=== PATIENT | female | born 1990 | race Caucasian/White ===

== ENCOUNTER → 2016-09-10 | Outpatient (CLI) | payer BC ==
[2016-09-10 13:17] LABS: Basophils # (A) 0.1 k/uL (0-0.2); Basophils % (A) 1 %; CH 32.5; CHCM 32.7; Eosinophils # (A) 0.1 k/uL (0-0.7); Eosinophils % (A) 1 %; HCT 45.5 % (34.0-46.0); HDW 2.57; HGB 14.7 gm/dL (11.4-16.0); Luc # (Auto) 0.19; Luc % (Auto) 2; Lymphocytes # (A) 2.4 k/uL (1.0-4.8); Lymphocytes % (A) 29 %; MCH 32.3 pg (25.0-35.0); MCHC 32.4 g/dL (31.0-37.0); MCV 99.9 fL (80.0-100.0); Mean Platelet Volume 8.5; Monocytes # (A) 0.5 k/uL (0-1.0); Monocytes % (A) 6 %; Neutrophils % (A) 61 %; RBC 4.56 m/uL (3.80-5.40); RDW 13.3 % (11.5-15.5); WBC 8.2 k/uL (3.8-10.6); WBC (Perox) 7.81
== END | disposition home or self-care (01) ==
LOC: LABWHC1 12:48
PROVIDERS: ATTEND Otolaryngology
DX: I88.9 Nonspecific lymphadenitis, unspecified (principal); R59.0 Localized enlarged lymph nodes
CPT/HCPCS: 36415; 83615; 85025; 86308; 87471

== ENCOUNTER → 2016-09-10 | Outpatient (CLI) | payer BC ==
--- NOTE | 2016-09-10 12:52 | XR ---
EXAMINATION TYPE: XR chest 2V DATE OF EXAM: 09/10/2016 12:47 PM COMPARISON: NONE TECHNIQUE: PA and lateral views submitted. HISTORY: Cough FINDINGS: The lungs are clear and there is no pneumothorax, pleural effusion, or focal pneumonia. Mild hypertr ophic change of the vertebral column. IMPRESSION: 1. No acute process.
== END | disposition home or self-care (01) ==
LOC: RADXRMAIN 12:33 → PTPH 12:33
PROVIDERS: ATTEND Otolaryngology
DX: R05 Cough (principal)
CPT/HCPCS: 71020

== ENCOUNTER → 2016-10-31 | Outpatient (CLI) | payer BC ==
--- NOTE | 2016-10-31 15:27 | US ---
EXAMINATION TYPE: US thyroid st tissue head/neck DATE OF EXAM: 10/31/2016 3:07 PM COMPARISON: NONE CLINICAL HISTORY: R22.1 Swelling/Mass in Neck, Rt Cervical Node. Palpable area felt posterior to pippa ible Multiple lymph nodes seen at palpable area, largest = 1.5cm and has normal fatty hilum IMPRESSION: NORMAL SOFT TISSUE ULTRASOUND OF THE NECK.
== END | disposition home or self-care (01) ==
LOC: RADUSWWP 14:35
PROVIDERS: ATTEND Otolaryngology
DX: R22.1 Localized swelling, mass and lump, neck (principal)
CPT/HCPCS: 76536

== ENCOUNTER 2020-01-30 10:28 | Emergency (ER) | payer BC, OTHER ==
[2020-01-30] MEDS ORDERED: KETOROLAC 30 MG/ML 1 ML VIAL IVP STA (10:47)
[2020-01-30] MEDS ORDERED: SODIUM CHLORIDE 0.9% 500 ML 500 ML IV STA (10:47)
--- NOTE | 2020-01-30 10:49 | ED ---
Chest Pain HPI - General Chief Complaint: Chest Pain Stated Complaint: Chest pain Time Seen by Provider: 01/30/20 10:34 Source: patient, RN notes reviewed Mode of arrival: ambulatory Limitations: no limitations - History of Present Illness Initial Comments: This is a 29-year-old female presents emergency Department with chief complaint of chest pain, shortness breath. Patient states his started yesterday symptoms have not improved. She does admit that symptoms do improve at rest she has some increased symptoms when she standing up or she takes a deep inspiration she has mild increase in pain. She does not feel short of breath currently. She denies any exertional symptoms. Patient denies any fever, chills, URI symptoms no prior cardiac disease. She denies any significant family history of chronic disease, hypertension hyperlipidemia and diabetes. She doesn't that she is a daily smoker. Denies any current nausea vomiting diarrhea constipation no chance . Patient does take Vyvanse and Charleen-D. - Related Data Home Medications Medication Instructions Recorded Confirmed Fexofenadine/Pseudoephedrine 1 tab PO DAILY 01/30/20 01/30/20 [Charleen-D 24 Hour Tablet] Ibuprofen [Motrin Ib] 800 mg PO Q8H PRN 01/30/20 01/30/20 Lisdexamfetamine Dimesylate 40 mg PO QAM 01/30/20 01/30/20 [Vyvanse] Medroxyprogesterone Acetate 150 mg IM Q90D 01/30/20 01/30/20 [Depo-Provera] Previous Rx's Medication Instructions Recorded Ibuprofen [Motrin] 600 mg PO Q8HR PRN #20 tab 01/30/20 Allergies Allergy/AdvReac Type Severity Reaction Status Date / Time No Known Allergies Allergy Verified 01/30/20 11:08 Review of Systems ROS Statement: Those systems with pertinent positive or pertinent negative responses have been documented in the HPI. ROS Other: All systems not noted in ROS Statement are negative. EKG Findings - EKG Comments: EKG Findings:: EKG performed at 10 39 normal sinus rhythm with incomplete right bundle, rate of 86 AL 142 QRS 92 QT/QTC 360/4:30 Past Medical History Past Medical History: No Reported History History of Any Multi-Drug Resistant Organisms: None Reported Past Surgical History: Adenoidectomy, Tonsillectomy Additional Past Surgical History / Comment(s): Right knee scope Past Psychological History: No Psychological Hx Reported Smoking Status: Current every day smoker Past Alcohol Use History: None Reported Past Drug Use History: None Reported General Exam Limitations: no limitations General appearance: alert, in no apparent distress Head exam: Present: atraumatic, normocephalic, normal inspection Eye exam: Present: normal appearance, PERRL, EOMI. Absent: scleral icterus, conjunctival injection, periorbital swelling ENT exam: Present: normal exam, normal oropharynx, mucous membranes moist Neck exam: Present: normal inspection, full ROM. Absent: tenderness, meningismus, lymphadenopathy Respiratory exam: Present: normal lung sounds bilaterally, chest wall tenderness (Minimal). Absent: respiratory distress, wheezes, rales, rhonchi, stridor Cardiovascular Exam: Present: regular rate, normal rhythm, normal heart sounds. Absent: systolic murmur, diastolic murmur, rubs, gallop, clicks GI/Abdominal exam: Present: soft, normal bowel sounds. Absent: distended, tenderness, guarding, rebound, rigid Extremities exam: Absent: pedal edema Neurological exam: Present: alert, oriented X3 Skin exam: Present: warm, dry, intact, normal color. 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 Patient's symptoms are more consistent with costochondritis patient did have improvement after Toradol and will be discharged in stable condition with close follow-up. Return parameters were discussed. Disposition Clinical Impression: Costochondritis, Chest wall pain Disposition: HOME SELF-CARE Condition: Stable Instructions (If sedation given, give patient instructions): Costochondritis (ED), Chest Pain (ED) Additional Instructions: Please return to the Emergency Department if symptoms worsen or any other concerns. Prescriptions: Ibuprofen [Motrin] 600 mg PO Q8HR PRN #20 tab PRN Reason: Pain Is patient prescribed a controlled substance at d/c from ED?: No Referrals: Chris Pastor MD [Primary Care Provider] - 1-2 days Time of Disposition: 11:42
[2020-01-30 11:06] LABS: ALT 15 U/L (4-34); AST 22 U/L (14-36); African American GFR (CKD) >90 (>60 ml/min/1.73 sqM); Albumin 4.4 g/dL (3.5-5.0); Alkaline Phosphatase 38 U/L (38-126); Anion Gap 9 mmol/L; Blood Urea Nitrogen 8 mg/dL (7-17); Calcium 9.4 mg/dL (8.4-10.2); Carbon Dioxide 23 mmol/L (22-30); Chloride 111 mmol/L (98-107); Glucose 76 mg/dL (74-99); Magnesium 1.9 mg/dL (1.6-2.3); Non-African American GFR(CKD) >90 (>60 ml/min/1.73 sqM); Potassium 4.1 mmol/L (3.5-5.1); Sodium 143 mmol/L (137-145); Total Bilirubin 0.9 mg/dL (0.2-1.3); Total Protein 6.9 g/dL (6.3-8.2)
[2020-01-30 11:08] LABS: Basophils # (A) 0.1 k/uL (0-0.2); Basophils % (A) 1 %; Eosinophils # (A) 0.2 k/uL (0-0.7); Eosinophils % (A) 3 %; HCT 42.1 % (34.0-46.0); HGB 13.6 gm/dL (11.4-16.0); Lymphocytes # (A) 1.8 k/uL (1.0-4.8); Lymphocytes % (A) 27 %; MCH 32.5 pg (25.0-35.0); MCHC 32.4 g/dL (31.0-37.0); MCV 100.3 fL (80.0-100.0); Monocytes # (A) 0.4 k/uL (0-1.0); Monocytes % (A) 6 %; Neutrophils % (A) 61 %; Platelet Count 212 k/uL (150-450); RDW 12.7 % (11.5-15.5); WBC 6.6 k/uL (3.8-10.6)
--- NOTE | 2020-01-30 11:14 | XR ---
EXAMINATION TYPE: XR chest 2V DATE OF EXAM: 01/30/2020 COMPARISON: Chest x-ray September 10, 2016. HISTORY: Chest pain. TECHNIQUE: Frontal and lateral views of the chest are obtained. FINDINGS: There is no focal air space opacity, pleural effusion, or pneumothorax seen. The cardiac silhouette size is within normal limits. The osseous structures are intact. Stable slight asymmetry to bilateral breast shadows similar to prior. New overlying EKG leads. IMPRESSION: No acute cardiopulmonary process. No significant change from prior.
[2020-01-30 11:19] LABS: D-Dimer <0.17 mg/L FEU (<0.60); Partial Thromboplastin Time 24.9 sec (22.0-30.0); Prothrombin Time 10.7 sec (9.0-12.0)
[2020-01-30 11:59] VITALS: BP 91/67; PULSE 76; RESP 16; TEMP 98.4
== END 2020-01-30 11:59 | disposition home or self-care (01) ==
LOC: EC 10:28
DX: M94.0 Chondrocostal junction syndrome [Tietze] (principal); F17.200 Nicotine dependence, unspecified, uncomplicated; Z79.3 Long term (current) use of hormonal contraceptives
CPT/HCPCS: 96374 ×2; 96361 ×2; 99284; 99285; 36415; 93005; 85379; 80053; 83690; 83735; 84484; 85025; 85610; 85730; 81025; 71046; J1885

== ENCOUNTER → 2023-10-26 | Outpatient (CLI) | payer OTHER ==
--- NOTE | 2023-10-26 20:44 | MR ---
EXAMINATION TYPE: MR clavicle LT wo con DATE OF EXAM: 10/26/2023 6:46 PM CLINICAL INDICATION:Female, 33 years old with history of S43.62XD SPRAIN OF LEFT STERNOCLAVICULAR BETTY NT, MARIANO; [facility], Left clavicle pain for 1 year, no known injury. COMPARISON: None TECHNIQUE: Multi planar, multi sequence imaging was obtained through the left shoulder/clavicle. IV Contrast: cc none FINDINGS: There is increased inversion recovery signal within the left lateral manubrium and medial aspect of t he left clavicle. Osteophyte formation and joint space narrowing present is present at the left gallardo oclavicular joint. The remainder of the osseous structures are without evidence for edema. The lung p arenchyma, mediastinum, and paraspinal regions included on the exam are grossly within normal limits. No evidence of mediastinal adenopathy. 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
== END | disposition home or self-care (01) ==
LOC: RADMRIMAIN 17:29
PROVIDERS: ATTEND Orthopaedic Surgery
DX: M19.09 Primary osteoarthritis, other specified site (principal); S43.6 Sprain of sternoclavicular joint; X58.XXXA Exposure to other specified factors, initial encounter
CPT/HCPCS: 71550